=== PATIENT | male | born 2000 | race African-American/Black ===

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

== ENCOUNTER 2021-01-09 19:58 | Emergency (ER) | payer MEDICAID ==
[~2021-01-09] VITALS: Ht 193 cm; Wt 163.3 kg
[2021-01-09 22:43] VITALS: BP 125/67
== END 2021-01-09 23:12 | disposition home or self-care (01) ==
LOC: ER 19:59
DX: S93.402A Sprain of unspecified ligament of left ankle, initial encounter (principal); S93.602A Unspecified sprain of left foot, initial encounter; E66.8 Other obesity; Z68.41 Body mass index [BMI] 40.0-44.9, adult; W20.8XXA Other cause of strike by thrown, projected or falling object, initial encounter; Y93.89 Activity, other specified; Y92.89 Other specified places as the place of occurrence of the external cause; Y99.8 Other external cause status
CPT/HCPCS: 73610; 73630

== ENCOUNTER 2021-06-06 07:54 | Emergency (ER) | payer MEDICAID ==
[~2021-06-06] VITALS: Ht 193 cm; Wt 145.1 kg
[2021-06-06 09:04] VITALS: BP 153/92
== END 2021-06-06 09:29 | disposition home or self-care (01) ==
LOC: ER 07:54
DX: S05.11XA Contusion of eyeball and orbital tissues, right eye, initial encounter (principal); J45.909 Unspecified asthma, uncomplicated; W51.XXXA Accidental striking against or bumped into by another person, initial encounter; Y93.67 Activity, basketball; Y92.89 Other specified places as the place of occurrence of the external cause; Y99.8 Other external cause status

== ENCOUNTER 2022-06-21 09:51 | Emergency (ER) | payer MEDICAID ==
[~2022-06-21] VITALS: Ht 195.6 cm; Wt 157.3 kg
[2022-06-21 10:18] VITALS: BP 153/97
[2022-06-21] MEDS ORDERED: ALBUTEROL SULF 2.5 MG/0.5ML(0.5%) NEB SOLN ONE (10:22)
[2022-06-21] MEDS ORDERED: IPRATROPIUM BROM 0.5 MG/2.5ML INH SOL ONE (10:22)
[2022-06-21] MEDS ORDERED: IPRATROPIUM BROM 0.5 MG/2.5ML INH SOL NEB ONE (10:30)
[2022-06-21] MEDS ORDERED: ALBUTEROL SULF 2.5 MG/0.5ML(0.5%) NEB SOLN NEB ONE (10:30)
[2022-06-21] MEDS ORDERED: ALB5IS NEB (10:59)
[2022-06-21] MEDS ORDERED: PRED20TA2 PO (10:59)
== END 2022-06-21 11:07 | disposition home or self-care (01) ==
LOC: ER 09:51
DX: J45.901 Unspecified asthma with (acute) exacerbation (principal); F12.10 Cannabis abuse, uncomplicated
CPT/HCPCS: 71045; 94640; 99283; J7644

== ENCOUNTER 2024-04-24 10:25 | Emergency (ER) | payer MEDICAID ==
[~2024-04-24 10:25] MED LIST: ALB5IS NEB; PRED20TA2 PO
[2024-04-24 11:10] VITALS: BP 126/84; PULSE 86; RESP 20; TEMP 97; O2SAT 98
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
--- NOTE | 2024-04-24 11:43 | DVH ---
INDICATION: Trauma COMPARISON: None TECHNIQUE: 3 views of the lumbar spine were obtained. FINDINGS: The lumbar vertebral alignment is normal. The intervertebral disc spaces are well-maintained. No significant facet arthropathy is noted. No acute fracture, vertebral compression deformity or aggressive osseous lesions. The paravertebral soft tissues are grossly unremarkable. IMPRESSION: No acute fracture.
[2024-04-24] MEDS ORDERED: BACL10TA PO (11:51)
[2024-04-24] MEDS ORDERED: IBUP-1456 PO (11:51)
== END 2024-04-24 11:58 | disposition home or self-care (01) ==
LOC: EDUNIT# 10:25 → ER 10:25
DX: S39.012A Strain of muscle, fascia and tendon of lower back, initial encounter (principal); Z79.1 Long term (current) use of non-steroidal anti-inflammatories (NSAID); Z79.899 Other long term (current) drug therapy; V43.52XA Car driver injured in collision with other type car in traffic accident, initial encounter; Y93.89 Activity, other specified; Y92.410 Unspecified street and highway as the place of occurrence of the external cause; Y99.8 Other external cause status
CPT/HCPCS: 72100